=== PATIENT | female | born 2005 | race Two or more races ===

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

== ENCOUNTER 2023-02-26 16:57 | Emergency (ER) | payer OTHER ==
[~2023-02-26] VITALS: Ht 162.6 cm; Wt 103.1 kg
[~2023-02-26 16:57] MED LIST changes: +CEPH500T PO
[2023-02-26 17:00] VITALS: BP 135/76; TEMP 100.1; O2SAT 98
[2023-02-26 20:22] LABS: RSV AMPLIFICATION NEGATIVE (NEGATIVE)
[2023-02-26] MEDS ORDERED: AUGMENTIN 875 MG TAB PO ONE (21:10)
[2023-02-26] MEDS ORDERED: ACETAMINOPHEN TAB 650MG DOSE (2X325MG) PO ONE (21:10)
[2023-02-26] MEDS ORDERED: AMOX875T2 PO (21:57)
== END 2023-02-26 21:44 | disposition home or self-care (01) ==
LOC: M ED 16:57
DX: J03.00 Acute streptococcal tonsillitis, unspecified (principal); Z79.2 Long term (current) use of antibiotics; Z79.899 Other long term (current) drug therapy

== ENCOUNTER 2023-06-27 12:03 | Inpatient (IN) | payer OTHER ==
[~2023-06-27] VITALS: Ht 162.6 cm; Wt 100.7 kg
[~2023-06-27 12:03] MED LIST changes: +AMOX875T2 PO
[2023-06-27] MEDS ORDERED: METF500T13 PO (12:27)
[2023-06-27 13:45] LABS: BASO % 0.3 % (0.0-1.0); EOS % 0.1 % (0.0-3.0); HEMOGLOBIN 15.8 g/dl (12.0-15.5); LYMPH # 1.1 10^3/uL (1.5-5.0); MEAN CORPUSCULAR HEMOGLOBIN 29.9 pg (27.0-33.0); MEAN CORPUSCULAR HGB CONC 34.3 g/dl (32.0-36.5); MEAN CORPUSCULAR VOLUME 87.1 fl (80.0-96.0); MONO # 0.5 10^3/uL (0.0-0.8); MONO % 3.9 % (2.0-8.0); NEUTROPHILS # 9.7 10^3/uL (1.5-8.5); NEUTROPHILS % 85.3 % (36.0-66.0); PLATELET COUNT, AUTOMATED 400 10^3/uL (150-450); RED BLOOD COUNT 5.28 10^6/uL (4.00-5.40); WHITE BLOOD COUNT 11.4 10^3/uL (4.0-10.0)
[2023-06-27 13:49] LABS: VENOUS BASE EXCESS -9.4 (-2.0-2.0); VENOUS HCO3 16.6 MMOL/L (23.0-27.0); VENOUS O2 SATURATION 82.1 % (60.0-80.0); VENOUS PARTIAL PRESSURE CO2 37.1 mmHg (38.0-50.0); VENOUS PARTIAL PRESSURE O2 48.3 mmHg (30.0-50.0); VENOUS PH 7.269 UNITS (7.330-7.430); VENOUS STANDARD HCO3 16.8 MMOL/L; VENOUS TOTAL CO2 17.8 MMOL/L (24.0-28.0)
[2023-06-27 14:07] LABS: HEMOGLOBIN A1c 12.4 % (4.0-6.0)
[2023-06-27 14:10] LABS: LIPASE 36 U/L (12-53)
[2023-06-27 14:17] LABS: ACETONE/KETONE > 4.50 MMOL/L (0.02-0.27); ALBUMIN 3.9 G/DL (3.2-5.2); ALKALINE PHOSPHATASE 105 U/L (46-116); ALT/SGPT 17 U/L (7.0-40); AST/SGOT 15 U/L (<34); BILIRUBIN,DIRECT 0.1 MG/DL (<0.4); BILIRUBIN,TOTAL 0.4 MG/DL (0.3-1.2); BLOOD UREA NITROGEN 12 MG/DL (9-23); CALCIUM LEVEL 8.8 MG/DL (8.5-10.1); CARBON DIOXIDE LEVEL 17 MMOL/L (20-31); CHLORIDE LEVEL 96 MMOL/L (98-107); CREATININE FOR GFR 0.78 MG/DL (0.55-1.30); GLUCOSE, FASTING 410 MG/DL (60-100); POTASSIUM SERUM 4.9 MMOL/L (3.5-5.1); SODIUM LEVEL 132 MMOL/L (136-145)
[2023-06-27] MEDS: NS 1,000 ML IV ONE (14:17)
[2023-06-27] MEDS: ONDANSETRON 4MG 2ML VIAL IV ONE (14:17)
[2023-06-27 14:21] LABS: HCG, SERUM QUALITATIVE NEGATIVE (NEGATIVE)
[2023-06-27] MEDS ORDERED: INSULIN IV RATE CHANGE DOCUMENTATION ML/HR XX SCH (14:25)
[2023-06-27] MEDS ORDERED: ISOVUE-370 76% 100ML VIAL As Ordered ONE (14:34)
[2023-06-27] MEDS: INSULIN REGULAR IN 0.9 % NACL 100 UNIT in IV 1 EA IV SCH (14:50)
[2023-06-27] MEDS: HumuLIN R (REGULAR) INSULIN (NovoLIN R) **100U/ML** PER UNIT IV ONE (14:51)
[2023-06-27] MEDS ORDERED: HOME MED LIST COMPLETE! XX SCH (15:05)
[2023-06-27 15:40] LABS: RSV AMPLIFICATION NEGATIVE (NEGATIVE)
[2023-06-27] MEDS: D5W/0.45% SODIUM CHLORIDE 1,000 ML IV SCH (16:02)
[2023-06-27] MEDS: D10W/0.45% SODIUM CHLORIDE 1,000 ML IV SCH (17:00)
[2023-06-27 17:21] LABS: VENOUS BASE EXCESS -6.2 (-2.0-2.0); VENOUS PARTIAL PRESSURE CO2 36.9 mmHg (38.0-50.0); VENOUS PARTIAL PRESSURE O2 40.3 mmHg (30.0-50.0); VENOUS TOTAL CO2 20.2 MMOL/L (24.0-28.0)
[2023-06-27] MEDS: KCL 20MEQ IN D5/0.45NS 1000ML 1,000 ML IV SCH (17:37)
[2023-06-27 18:00] LABS: BLOOD UREA NITROGEN 11 MG/DL (9-23); CALCIUM LEVEL 7.9 MG/DL (8.5-10.1); CARBON DIOXIDE LEVEL 20 MMOL/L (20-31); CHLORIDE LEVEL 105 MMOL/L (98-107); CREATININE FOR GFR 0.66 MG/DL (0.55-1.30); GLUCOSE, FASTING 128 MG/DL (60-100); POTASSIUM SERUM 3.7 MMOL/L (3.5-5.1); SODIUM LEVEL 136 MMOL/L (136-145)
[2023-06-27] MEDS ORDERED: GLUCOSE 4GM CHEW TABLET PO PRN (18:50)
[2023-06-27] MEDS ORDERED: GLUCAGON INJ 1MG VIAL SC PRN (18:50)
[2023-06-27] MEDS ORDERED: DEXTROSE 50% 50ML SYRINGE IV PRN (18:50)
[2023-06-27] MEDS: LEVEMIR (INSULIN DETEMIR) 1 UNITS/0.01ML SC SCH (18:59)
[2023-06-27 19:05] LABS: VENOUS BASE EXCESS -4.4 (-2.0-2.0); VENOUS HCO3 20.7 MMOL/L (23.0-27.0); VENOUS O2 SATURATION 96.1 % (60.0-80.0); VENOUS PH 7.353 UNITS (7.330-7.430); VENOUS STANDARD HCO3 20.8 MMOL/L; VENOUS TOTAL CO2 21.8 MMOL/L (24.0-28.0)
[2023-06-27 19:42] LABS: BLOOD UREA NITROGEN 9 MG/DL (9-23); CALCIUM LEVEL 7.8 MG/DL (8.5-10.1); CARBON DIOXIDE LEVEL 23 MMOL/L (20-31); CHLORIDE LEVEL 106 MMOL/L (98-107); CREATININE FOR GFR 0.65 MG/DL (0.55-1.30); GLUCOSE, FASTING 127 MG/DL (60-100); POTASSIUM SERUM 3.8 MMOL/L (3.5-5.1); SODIUM LEVEL 136 MMOL/L (136-145)
[2023-06-27] MEDS: INSULIN LISPRO (NovoLOG) PER UNIT SC ONE (20:05)
[2023-06-27] MEDS: INSULIN LISPRO (NovoLOG) PER UNIT SC SCH (21:00)
[2023-06-27 21:44] LABS: BLOOD UREA NITROGEN 9 MG/DL (9-23); CALCIUM LEVEL 8.3 MG/DL (8.5-10.1); CARBON DIOXIDE LEVEL 22 MMOL/L (20-31); CHLORIDE LEVEL 107 MMOL/L (98-107); CREATININE FOR GFR 0.65 MG/DL (0.55-1.30); GLUCOSE, FASTING 239 MG/DL (60-100); POTASSIUM SERUM 4.1 MMOL/L (3.5-5.1); SODIUM LEVEL 136 MMOL/L (136-145)
[2023-06-28 02:30] VITALS: BP 141/85; TEMP 98.1; O2SAT 98
[2023-06-28 06:15] VITALS: BP 130/76; TEMP 98.1; O2SAT 100
[2023-06-28 06:43] LABS: BLOOD UREA NITROGEN 7 MG/DL (9-23); CALCIUM LEVEL 8.4 MG/DL (8.5-10.1); CARBON DIOXIDE LEVEL 23 MMOL/L (20-31); CHLORIDE LEVEL 103 MMOL/L (98-107); CREATININE FOR GFR 0.68 MG/DL (0.55-1.30); GLUCOSE, FASTING 283 MG/DL (60-100); SODIUM LEVEL 133 MMOL/L (136-145)
[2023-06-28] MEDS ORDERED: INSULIN LISPRO (NovoLOG) PER UNIT SC SCH (07:30)
[2023-06-28] MEDS: ENOXAPARIN 40MG/0.4ML SYRINGE (J1650 PER 10MG) SC SCH (08:51)
[2023-06-28] MEDS: INSULIN LISPRO (NovoLOG) PER UNIT SC SCH (08:52)
[2023-06-28] MEDS ORDERED: GLUC1TES2 XX (10:39)
[2023-06-28] MEDS ORDERED: DEXT4TAB83 PO (10:39)
[2023-06-28] MEDS ORDERED: BLOOKIT21 XX (10:39)
[2023-06-28] MEDS ORDERED: LANTINJ4 SC (10:39)
[2023-06-28] MEDS ORDERED: PEN-308 SC (10:39)
[2023-06-28] MEDS ORDERED: ALCOPAD25 TOP (10:39)
[2023-06-28] MEDS ORDERED: LANC30MI XX (10:39)
[2023-06-28 14:15] VITALS: BP 128/74; TEMP 98.1; O2SAT 100
[2023-06-28] MEDS ORDERED: LEVEMIR (INSULIN DETEMIR) 1 UNITS/0.01ML SC SCH (21:00)
== END 2023-06-28 19:00 | disposition home or self-care (01) | DRG 420 ==
LOC: M ED 12:03 → M ED INP 16:50 → ENRESERV 06-28 01:57 → M MS5PR 06-28 02:30
PROVIDERS: ADMIT Internal Medicine Pulmonary Disease; ATTEND Student in an Organized Health Care Education/Training Program
DX: E10.10 Type 1 diabetes mellitus with ketoacidosis without coma (principal); F17.290 Nicotine dependence, other tobacco product, uncomplicated; Z83.49 Family history of other endocrine, nutritional and metabolic diseases; F12.90 Cannabis use, unspecified, uncomplicated

== ENCOUNTER 2024-07-18 15:56 | Emergency (ER) | payer OTHER ==
[~2024-07-18] VITALS: Ht 162.6 cm; Wt 87.7 kg
[~2024-07-18 15:56] MED LIST changes: +ALCOPAD25 TOP; +BLOOKIT21 XX; +DEXT4TAB83 PO; +GLUC1TES2 XX; +LANC30MI XX; +LANTINJ4 SC; +METF500T13 PO; +PEN-308 SC
[2024-07-18 16:03] VITALS: TEMP 98.7
[2024-07-18] MEDS ORDERED: INSU100I59 (16:07)
[2024-07-18] MEDS ORDERED: NOVOINJ3 SQ (16:07)
[2024-07-18 19:11] LABS: VENOUS BASE EXCESS -0.3 (-2.0-2.0); VENOUS HCO3 22.7 MMOL/L (23.0-27.0); VENOUS O2 SATURATION 99.1 % (60.0-80.0); VENOUS PARTIAL PRESSURE CO2 33.5 mmHg (38.0-50.0); VENOUS PARTIAL PRESSURE O2 173.8 mmHg (30.0-50.0); VENOUS PH 7.449 UNITS (7.330-7.430); VENOUS STANDARD HCO3 24.3 MMOL/L; VENOUS TOTAL CO2 23.7 MMOL/L (24.0-28.0)
[2024-07-18 19:16] LABS: BASO # 0.1 10^3/uL (0.0-0.2); BASO % 0.6 % (0.0-1.0); EOS % 0.2 % (0.0-3.0); HEMATOCRIT 50.8 % (36.0-47.0); HEMOGLOBIN 17.3 g/dl (12.0-15.5); LYMPH # 3.1 10^3/uL (1.5-5.0); LYMPH % 25.5 % (24.0-44.0); MEAN CORPUSCULAR HEMOGLOBIN 30.5 pg (27.0-33.0); MEAN CORPUSCULAR HGB CONC 34.1 g/dl (32.0-36.5); MEAN CORPUSCULAR VOLUME 89.4 fl (80.0-96.0); MONO # 0.7 10^3/uL (0.0-0.8); MONO % 5.6 % (2.0-8.0); NEUTROPHILS # 8.2 10^3/uL (1.5-8.5); NEUTROPHILS % 67.7 % (36.0-66.0); PLATELET COUNT, AUTOMATED 442 10^3/uL (150-450); RED BLOOD COUNT 5.68 10^6/uL (4.00-5.40); WHITE BLOOD COUNT 12.1 10^3/uL (4.0-10.0)
[2024-07-18 19:16] LABS: KETONE, URINE AUTO RFX 2+ mg/dL (NEGATIVE); LEUKOCYTE ESTERASE UR AUTO RFX NEGATIVE (NEGATIVE); MUCUS, URINE RFX SMALL (NEGATIVE); NITRITE, URINE AUTO RFX NEGATIVE (NEGATIVE); RBC, URINE AUTO RFX 0 /HPF (0-3); SQUAM EPITHELIAL CELL UR AURFX 5 /HPF (0-6); WBC, URINE AUTO RFX 1 /HPF (0-3)
[2024-07-18] MEDS: ONDANSETRON 4MG 2ML VIAL IV ONE (19:24)
[2024-07-18 19:29] LABS: HEMOGLOBIN A1c 12.4 % (4.0-6.0)
[2024-07-18 19:36] LABS: OSMOLALITY SERUM 321 MOSM/KG (275-295)
[2024-07-18 19:40] LABS: HCG, SERUM QUALITATIVE NEGATIVE (NEGATIVE)
[2024-07-18 19:42] LABS: ACETONE/KETONE 1.79 MMOL/L (0.02-0.27)
[2024-07-18 19:46] LABS: ALBUMIN 4.4 G/DL (3.2-5.2); ALKALINE PHOSPHATASE 132 U/L (35-104); ALT/SGPT 19 U/L (7.0-40); AST/SGOT 36 U/L (<34); BILIRUBIN,DIRECT 0.2 MG/DL (<0.4); BILIRUBIN,TOTAL 0.7 MG/DL (0.3-1.2); BLOOD UREA NITROGEN 24 MG/DL (9-23); CALCIUM LEVEL 10.8 MG/DL (8.5-10.1); CARBON DIOXIDE LEVEL 25 MMOL/L (20-31); CHLORIDE LEVEL 100 MMOL/L (98-107); CREATININE FOR GFR 0.86 MG/DL (0.55-1.30); GLUCOSE, FASTING 172 MG/DL (60-100); LIPASE 30 U/L (12-53); POTASSIUM SERUM 5.2 MMOL/L (3.5-5.1); SODIUM LEVEL 138 MMOL/L (136-145); TOTAL PROTEIN 9.6 G/DL (5.7-8.2)
[2024-07-18] MEDS: NS (Normal Saline) 0.9% 1,000 ML IV ONE (20:10)
[2024-07-18 20:37] VITALS: BP 131/80; O2SAT 99
[2024-07-18] MEDS ORDERED: ONDA-282 PO (21:10)
== END 2024-07-18 21:20 | disposition home or self-care (01) ==
LOC: M ED 15:56
DX: R11.2 Nausea with vomiting, unspecified (principal); E10.9 Type 1 diabetes mellitus without complications; F17.290 Nicotine dependence, other tobacco product, uncomplicated; Z79.4 Long term (current) use of insulin

== ENCOUNTER 2024-07-19 09:24 | Inpatient (IN) | payer OTHER ==
[~2024-07-19] VITALS: Ht 162.6 cm; Wt 89.7 kg
[~2024-07-19 09:24] MED LIST changes: +INSU100I59; +NOVOINJ3 SQ; +ONDA-282 PO
[2024-07-19 10:11] LABS: VENOUS BASE EXCESS -18.2 (-2.0-2.0); VENOUS HCO3 6.3 MMOL/L (23.0-27.0); VENOUS O2 SATURATION 99.6 % (60.0-80.0); VENOUS PARTIAL PRESSURE CO2 15.2 mmHg (38.0-50.0); VENOUS PARTIAL PRESSURE O2 236.9 mmHg (30.0-50.0); VENOUS PH 7.238 UNITS (7.330-7.430); VENOUS STANDARD HCO3 11.5 MMOL/L; VENOUS TOTAL CO2 6.8 MMOL/L (24.0-28.0)
[2024-07-19] MEDS: ONDANSETRON 4MG 2ML VIAL IV ONE (10:15)
[2024-07-19 10:20] LABS: BASO # 0.1 10^3/uL (0.0-0.2); BASO % 0.5 % (0.0-1.0); HEMATOCRIT 46.6 % (36.0-47.0); LYMPH # 0.9 10^3/uL (1.5-5.0); LYMPH % 6.8 % (24.0-44.0); MEAN CORPUSCULAR HEMOGLOBIN 30.1 pg (27.0-33.0); MEAN CORPUSCULAR HGB CONC 31.5 g/dl (32.0-36.5); MEAN CORPUSCULAR VOLUME 95.5 fl (80.0-96.0); MONO # 0.6 10^3/uL (0.0-0.8); MONO % 4.7 % (2.0-8.0); NEUTROPHILS # 11.6 10^3/uL (1.5-8.5); NEUTROPHILS % 87.5 % (36.0-66.0); PLATELET COUNT, AUTOMATED 368 10^3/uL (150-450); RED BLOOD COUNT 4.88 10^6/uL (4.00-5.40); WHITE BLOOD COUNT 13.2 10^3/uL (4.0-10.0)
[2024-07-19 10:21] LABS: HEMOGLOBIN 14.7 g/dl (12.0-15.5)
[2024-07-19 10:39] LABS: LIPASE 31 U/L (12-53)
[2024-07-19 10:44] LABS: ACETONE/KETONE > 4.50 MMOL/L (0.02-0.27); ALBUMIN 3.7 G/DL (3.2-5.2); ALKALINE PHOSPHATASE 115 U/L (35-104); ALT/SGPT 16 U/L (7.0-40); AST/SGOT 34 U/L (<34); BILIRUBIN,DIRECT 0.4 MG/DL (<0.4); BILIRUBIN,TOTAL 0.9 MG/DL (0.3-1.2); BLOOD UREA NITROGEN 25 MG/DL (9-23); CALCIUM LEVEL 9.3 MG/DL (8.5-10.1); CARBON DIOXIDE LEVEL < 10.0 MMOL/L (20-31); CHLORIDE LEVEL 93 MMOL/L (98-107); GLUCOSE, FASTING 661 MG/DL (60-100); MAGNESIUM LEVEL 2.2 MG/DL (1.8-2.4); POTASSIUM SERUM 5.7 MMOL/L (3.5-5.1); SODIUM LEVEL 131 MMOL/L (136-145); TOTAL PROTEIN 7.9 G/DL (5.7-8.2)
[2024-07-19] MEDS: NS (Normal Saline) 0.9% 1,000 ML IV ONE ×2 (10:46→11:00)
[2024-07-19] MEDS ORDERED: INSULIN IV RATE CHANGE DOCUMENTATION ML/HR XX SCH ×2 (10:50→13:05)
[2024-07-19 10:51] LABS: OSMOLALITY SERUM 339 MOSM/KG (275-295)
[2024-07-19 10:57] LABS: KETONE, URINE AUTO RFX 2+ mg/dL (NEGATIVE); LEUKOCYTE ESTERASE UR AUTO RFX NEGATIVE (NEGATIVE); NITRITE, URINE AUTO RFX NEGATIVE (NEGATIVE); RBC, URINE AUTO RFX 0 /HPF (0-3); SQUAM EPITHELIAL CELL UR AURFX 1 /HPF (0-6); WBC, URINE AUTO RFX 0 /HPF (0-3)
[2024-07-19] MEDS: INSULIN REGULAR IN 0.9 % NACL 100 UNIT in IV 1 EA IV SCH (11:19)
[2024-07-19 11:39] LABS: HEMOGLOBIN A1c 12.6 % (4.0-6.0)
[2024-07-19] MEDS ORDERED: INSULIN REGULAR IN 0.9 % NACL 100 UNIT in IV 1 EA IV SCH (12:10)
[2024-07-19 12:12] VITALS: BP 159/104; TEMP 98.3; O2SAT 99
[2024-07-19] MEDS: PANTOPRAZOLE 40MG VIAL IV SCH (13:22)
[2024-07-19] MEDS: NS (Normal Saline) 0.9% 1,000 ML IV SCH (13:23)
[2024-07-19] MEDS: PROMETHAZINE 25MG/ML 1ML VIAL IV PRN (13:24)
[2024-07-19 13:26] VITALS: BP 168/121; O2SAT 99
[2024-07-19 13:30] VITALS: BP 162/105; O2SAT 99
[2024-07-19] MEDS ORDERED: HOME MED LIST COMPLETE! XX SCH (13:40)
[2024-07-19] MEDS: D5W/0.9% SODIUM CHLORIDE 1,000 ML IV SCH (15:40)
[2024-07-19 16:00] VITALS: BP 154/108; TEMP 98; O2SAT 98
[2024-07-19 16:28] LABS: VENOUS BASE EXCESS -12.3 (-2.0-2.0); VENOUS HCO3 11.1 MMOL/L (23.0-27.0); VENOUS O2 SATURATION 99.2 % (60.0-80.0); VENOUS PARTIAL PRESSURE CO2 21.5 mmHg (38.0-50.0); VENOUS PARTIAL PRESSURE O2 144.8 mmHg (30.0-50.0); VENOUS PH 7.329 UNITS (7.330-7.430); VENOUS STANDARD HCO3 15.2 MMOL/L; VENOUS TOTAL CO2 11.7 MMOL/L (24.0-28.0)
[2024-07-19 17:13] LABS: BLOOD UREA NITROGEN 25 MG/DL (9-23); CALCIUM LEVEL 9.2 MG/DL (8.5-10.1); CARBON DIOXIDE LEVEL 13 MMOL/L (20-31); CHLORIDE LEVEL 105 MMOL/L (98-107); CREATININE FOR GFR 0.93 MG/DL (0.55-1.30); GLUCOSE, FASTING 170 MG/DL (60-100); PHOSPHORUS LEVEL 2.9 MG/DL (2.5-4.9); POTASSIUM SERUM 4.9 MMOL/L (3.5-5.1); SODIUM LEVEL 141 MMOL/L (136-145)
[2024-07-19 20:00] VITALS: BP 144/89; TEMP 98.2; O2SAT 99
[2024-07-19 20:04] LABS: VENOUS HCO3 16.7 MMOL/L (23.0-27.0); VENOUS O2 SATURATION 99.1 % (60.0-80.0); VENOUS PARTIAL PRESSURE CO2 29.4 mmHg (38.0-50.0); VENOUS PARTIAL PRESSURE O2 229.7 mmHg (30.0-50.0); VENOUS PH 7.371 UNITS (7.330-7.430); VENOUS STANDARD HCO3 18.9 MMOL/L; VENOUS TOTAL CO2 17.6 MMOL/L (24.0-28.0)
[2024-07-19] MEDS: INSULIN IV RATE CHANGE DOCUMENTATION ML/HR XX SCH (20:05)
[2024-07-19 21:02] LABS: BLOOD UREA NITROGEN 22 MG/DL (9-23); CARBON DIOXIDE LEVEL 17 MMOL/L (20-31); CHLORIDE LEVEL 108 MMOL/L (98-107); CREATININE FOR GFR 0.93 MG/DL (0.55-1.30); GLUCOSE, FASTING 186 MG/DL (60-100); PHOSPHORUS LEVEL 3.5 MG/DL (2.5-4.9); POTASSIUM SERUM 5.1 MMOL/L (3.5-5.1); SODIUM LEVEL 142 MMOL/L (136-145)
[2024-07-20] VITALS: BP 150/107; TEMP 97.8; O2SAT 99
[2024-07-20 00:16] LABS: VENOUS BASE EXCESS -2.6 (-2.0-2.0); VENOUS O2 SATURATION 96.7 % (60.0-80.0); VENOUS PARTIAL PRESSURE CO2 37.7 mmHg (38.0-50.0); VENOUS PARTIAL PRESSURE O2 87.3 mmHg (30.0-50.0); VENOUS PH 7.384 UNITS (7.330-7.430); VENOUS STANDARD HCO3 22.3 MMOL/L; VENOUS TOTAL CO2 23.2 MMOL/L (24.0-28.0)
[2024-07-20 00:52] LABS: BLOOD UREA NITROGEN 21 MG/DL (9-23); CALCIUM LEVEL 8.8 MG/DL (8.5-10.1); CARBON DIOXIDE LEVEL 22 MMOL/L (20-31); CHLORIDE LEVEL 109 MMOL/L (98-107); CREATININE FOR GFR 0.96 MG/DL (0.55-1.30); GLUCOSE, FASTING 127 MG/DL (60-100); PHOSPHORUS LEVEL 2.6 MG/DL (2.5-4.9); POTASSIUM SERUM 3.9 MMOL/L (3.5-5.1); SODIUM LEVEL 144 MMOL/L (136-145)
[2024-07-20 04:00] VITALS: BP 142/95; TEMP 98.3; O2SAT 99
[2024-07-20 04:17] LABS: VENOUS BASE EXCESS -5.6 (-2.0-2.0); VENOUS HCO3 18.8 MMOL/L (23.0-27.0); VENOUS O2 SATURATION 90.4 % (60.0-80.0); VENOUS PARTIAL PRESSURE CO2 33.9 mmHg (38.0-50.0); VENOUS PARTIAL PRESSURE O2 58.4 mmHg (30.0-50.0); VENOUS PH 7.362 UNITS (7.330-7.430); VENOUS STANDARD HCO3 19.8 MMOL/L; VENOUS TOTAL CO2 19.8 MMOL/L (24.0-28.0)
[2024-07-20 04:23] LABS: BASO % 0.3 % (0.0-1.0); EOS # 0.1 10^3/uL (0.0-0.5); EOS % 0.6 % (0.0-3.0); HEMATOCRIT 42.4 % (36.0-47.0); HEMOGLOBIN 14.1 g/dl (12.0-15.5); LYMPH # 2.4 10^3/uL (1.5-5.0); LYMPH % 27.2 % (24.0-44.0); MEAN CORPUSCULAR HEMOGLOBIN 30.8 pg (27.0-33.0); MEAN CORPUSCULAR HGB CONC 33.3 g/dl (32.0-36.5); MEAN CORPUSCULAR VOLUME 92.6 fl (80.0-96.0); MONO # 0.8 10^3/uL (0.0-0.8); MONO % 8.7 % (2.0-8.0); NEUTROPHILS # 5.6 10^3/uL (1.5-8.5); PLATELET COUNT, AUTOMATED 326 10^3/uL (150-450); RED BLOOD COUNT 4.58 10^6/uL (4.00-5.40); WHITE BLOOD COUNT 8.9 10^3/uL (4.0-10.0)
[2024-07-20 04:46] LABS: BLOOD UREA NITROGEN 18 MG/DL (9-23); CALCIUM LEVEL 8.8 MG/DL (8.5-10.1); CARBON DIOXIDE LEVEL 22 MMOL/L (20-31); CHLORIDE LEVEL 110 MMOL/L (98-107); CREATININE FOR GFR 0.96 MG/DL (0.55-1.30); GLUCOSE, FASTING 177 MG/DL (60-100); POTASSIUM SERUM 4.4 MMOL/L (3.5-5.1); SODIUM LEVEL 144 MMOL/L (136-145)
[2024-07-20 08:00] VITALS: BP 121/84; TEMP 98.1; O2SAT 99
[2024-07-20 08:08] LABS: VENOUS BASE EXCESS -5.6 (-2.0-2.0); VENOUS HCO3 18.6 MMOL/L (23.0-27.0); VENOUS O2 SATURATION 99.4 % (60.0-80.0); VENOUS PARTIAL PRESSURE CO2 33.1 mmHg (38.0-50.0); VENOUS PARTIAL PRESSURE O2 192.9 mmHg (30.0-50.0); VENOUS PH 7.368 UNITS (7.330-7.430); VENOUS STANDARD HCO3 19.9 MMOL/L; VENOUS TOTAL CO2 19.6 MMOL/L (24.0-28.0)
[2024-07-20 08:43] LABS: BLOOD UREA NITROGEN 17 MG/DL (9-23); CALCIUM LEVEL 8.6 MG/DL (8.5-10.1); CARBON DIOXIDE LEVEL 22 MMOL/L (20-31); CHLORIDE LEVEL 108 MMOL/L (98-107); GLUCOSE, FASTING 166 MG/DL (60-100); PHOSPHORUS LEVEL 2.7 MG/DL (2.5-4.9); SODIUM LEVEL 142 MMOL/L (136-145)
[2024-07-20] MEDS ORDERED: GLUCOSE 4 GM CHEW PO PRN (09:10)
[2024-07-20] MEDS ORDERED: GLUCAGON INJ 1MG VIAL SC PRN (09:10)
[2024-07-20] MEDS ORDERED: DEXTROSE 50% 50ML SYRINGE IV PRN (09:10)
[2024-07-20] MEDS: ENOXAPARIN 40MG/0.4ML SYRINGE (J1650 PER 10MG) SC SCH (09:26)
[2024-07-20] MEDS: LanTUS (INSULIN GLARGINE INJ) 1 UNITS/0.01 ML SC SCH (09:27)
[2024-07-20] MEDS: INSULIN REGULAR IN 0.9 % NACL 100 UNIT in IV 1 EA IV SCH (09:32)
[2024-07-20] MEDS: INSULIN LISPRO (NovoLOG) PER UNIT SC SCH ×2 (11:36→20:11)
[2024-07-20 12:00] VITALS: BP 159/91
[2024-07-20 12:05] LABS: VENOUS BASE EXCESS -4.5 (-2.0-2.0); VENOUS HCO3 20.3 MMOL/L (23.0-27.0); VENOUS O2 SATURATION 98.8 % (60.0-80.0); VENOUS PARTIAL PRESSURE CO2 36.9 mmHg (38.0-50.0); VENOUS PH 7.359 UNITS (7.330-7.430); VENOUS STANDARD HCO3 20.8 MMOL/L; VENOUS TOTAL CO2 21.5 MMOL/L (24.0-28.0)
[2024-07-20 12:43] LABS: BLOOD UREA NITROGEN 15 MG/DL (9-23); CARBON DIOXIDE LEVEL 23 MMOL/L (20-31); CHLORIDE LEVEL 106 MMOL/L (98-107); CREATININE FOR GFR 0.88 MG/DL (0.55-1.30); GLUCOSE, FASTING 151 MG/DL (60-100); PHOSPHORUS LEVEL 2.5 MG/DL (2.5-4.9); POTASSIUM SERUM 3.8 MMOL/L (3.5-5.1); SODIUM LEVEL 141 MMOL/L (136-145)
[2024-07-20] MEDS: INSULIN LISPRO (NovoLOG) PER UNIT SC ONE (14:47)
[2024-07-20 20:00] VITALS: BP 145/89; TEMP 98; O2SAT 99
[2024-07-21 04:00] VITALS: BP 139/82; TEMP 98.6; O2SAT 99
[2024-07-21 04:53] LABS: BASO % 0.7 % (0.0-1.0); EOS # 0.1 10^3/uL (0.0-0.5); EOS % 1.8 % (0.0-3.0); HEMATOCRIT 36.1 % (36.0-47.0); HEMOGLOBIN 12.2 g/dl (12.0-15.5); LYMPH # 3.3 10^3/uL (1.5-5.0); LYMPH % 55.5 % (24.0-44.0); MEAN CORPUSCULAR HEMOGLOBIN 30.7 pg (27.0-33.0); MEAN CORPUSCULAR HGB CONC 33.8 g/dl (32.0-36.5); MEAN CORPUSCULAR VOLUME 90.7 fl (80.0-96.0); MONO # 0.4 10^3/uL (0.0-0.8); MONO % 6.4 % (2.0-8.0); NEUTROPHILS # 2.1 10^3/uL (1.5-8.5); NEUTROPHILS % 35.4 % (36.0-66.0); PLATELET COUNT, AUTOMATED 227 10^3/uL (150-450); RED BLOOD COUNT 3.98 10^6/uL (4.00-5.40)
[2024-07-21 05:21] LABS: BLOOD UREA NITROGEN 11 MG/DL (9-23); CALCIUM LEVEL 8.4 MG/DL (8.5-10.1); CARBON DIOXIDE LEVEL 25 MMOL/L (20-31); CHLORIDE LEVEL 103 MMOL/L (98-107); CREATININE FOR GFR 0.79 MG/DL (0.55-1.30); GLUCOSE, FASTING 317 MG/DL (60-100); POTASSIUM SERUM 3.4 MMOL/L (3.5-5.1); SODIUM LEVEL 138 MMOL/L (136-145)
[2024-07-21 08:00] VITALS: BP 142/82; TEMP 97.7; O2SAT 98
== END 2024-07-21 15:05 | disposition home or self-care (01) | DRG 420 ==
LOC: M ED 09:24 → M ED INP 11:07 → M ICU 12:03
PROVIDERS: ADMIT Internal Medicine Pulmonary Disease; ATTEND Student in an Organized Health Care Education/Training Program
DX: E10.10 Type 1 diabetes mellitus with ketoacidosis without coma (principal); E87.5 Hyperkalemia; E66.01 Morbid (severe) obesity due to excess calories; F12.90 Cannabis use, unspecified, uncomplicated; Z91.148 Patient's other noncompliance with medication regimen for other reason; Z79.4 Long term (current) use of insulin

== ENCOUNTER 2024-09-01 09:57 | Inpatient (IN) | payer OTHER ==
[~2024-09-01] VITALS: Ht 162.6 cm; Wt 90.0 kg
[2024-09-01] MEDS: PIPERACILLIN/TAZOBACTAM SOD 3.375 GM in DEXTROSE 5% (D5W) ADV/MINI-BAG 50 ML IV SCH (00:20)
[2024-09-01] MEDS: NS (Normal Saline) 0.9% 1,000 ML IV ONE (11:06)
[2024-09-01 11:12] LABS: VENOUS BASE EXCESS -5.6 (-2.0-2.0); VENOUS HCO3 19.8 MMOL/L (23.0-27.0); VENOUS O2 SATURATION 93.8 % (60.0-80.0); VENOUS PARTIAL PRESSURE CO2 38.4 mmHg (38.0-50.0); VENOUS PARTIAL PRESSURE O2 73.8 mmHg (30.0-50.0); VENOUS STANDARD HCO3 19.8 MMOL/L
[2024-09-01 11:15] LABS: BASO % 0.3 % (0.0-1.0); EOS # 0.1 10^3/uL (0.0-0.5); EOS % 1.5 % (0.0-3.0); HEMATOCRIT 40.2 % (36.0-47.0); LYMPH # 1.5 10^3/uL (1.5-5.0); LYMPH % 16.3 % (24.0-44.0); MEAN CORPUSCULAR HEMOGLOBIN 31.3 pg (27.0-33.0); MEAN CORPUSCULAR HGB CONC 32.3 g/dl (32.0-36.5); MEAN CORPUSCULAR VOLUME 96.6 fl (80.0-96.0); MONO # 0.4 10^3/uL (0.0-0.8); MONO % 4.5 % (2.0-8.0); NEUTROPHILS # 7.2 10^3/uL (1.5-8.5); NEUTROPHILS % 77.1 % (36.0-66.0); PLATELET COUNT, AUTOMATED 255 10^3/uL (150-450); RED BLOOD COUNT 4.16 10^6/uL (4.00-5.40); WHITE BLOOD COUNT 9.3 10^3/uL (4.0-10.0)
[2024-09-01 11:43] LABS: LIPASE 56 U/L (12-53)
[2024-09-01 11:49] LABS: HEMOGLOBIN A1c 12.4 % (4.0-6.0)
[2024-09-01 11:53] LABS: OSMOLALITY SERUM 317 MOSM/KG (275-295)
[2024-09-01] MEDS ORDERED: HOME MED LIST COMPLETE! XX SCH (11:55)
[2024-09-01 11:58] LABS: KETONE, URINE AUTO RFX 2+ mg/dL (NEGATIVE); MUCUS, URINE RFX SMALL (NEGATIVE); NITRITE, URINE AUTO RFX NEGATIVE (NEGATIVE); RBC, URINE AUTO RFX 1 /HPF (0-3); SQUAM EPITHELIAL CELL UR AURFX 2 /HPF (0-6); WBC, URINE AUTO RFX 3 /HPF (0-3)
[2024-09-01 11:59] LABS: LEUKOCYTE ESTERASE UR AUTO RFX TRACE (NEGATIVE)
[2024-09-01 12:08] LABS: ACETONE/KETONE > 4.50 MMOL/L (0.02-0.27); ALBUMIN 3.1 G/DL (3.2-5.2); ALKALINE PHOSPHATASE 118 U/L (35-104); ALT/SGPT 21 U/L (7.0-40); AST/SGOT 21 U/L (<34); BILIRUBIN,DIRECT 0.2 MG/DL (<0.4); BILIRUBIN,TOTAL 0.5 MG/DL (0.3-1.2); BLOOD UREA NITROGEN 14 MG/DL (9-23); CALCIUM LEVEL 8.3 MG/DL (8.5-10.1); CARBON DIOXIDE LEVEL 19 MMOL/L (20-31); CHLORIDE LEVEL 96 MMOL/L (98-107); CREATININE FOR GFR 0.65 MG/DL (0.55-1.30); GLOMERULAR FILTRATION RATE > 90.0 (>60); GLUCOSE, FASTING 661 MG/DL (60-100); MAGNESIUM LEVEL 1.9 MG/DL (1.8-2.4); PHOSPHORUS LEVEL 3.7 MG/DL (2.5-4.9); SODIUM LEVEL 132 MMOL/L (136-145); TOTAL PROTEIN 6.5 G/DL (5.7-8.2)
[2024-09-01] MEDS ORDERED: HumuLIN R (REGULAR) INSULIN (NovoLIN R) **100U/ML** PER UNIT IV ONE (12:10)
[2024-09-01] MEDS ORDERED: INSULIN IV RATE CHANGE DOCUMENTATION ML/HR XX SCH (12:10)
[2024-09-01] MEDS: ONDANSETRON 4MG 2ML VIAL IV ONE (12:45)
[2024-09-01] MEDS: HumuLIN R (REGULAR) INSULIN (NovoLIN R) **100U/ML** PER UNIT IV ONE (12:47)
[2024-09-01] MEDS: INSULIN REGULAR IN 0.9 % NACL 100 UNIT in IV 1 EA IV SCH ×2 (12:48→14:51)
[2024-09-01 13:08] LABS: HCG, SERUM QUALITATIVE NEGATIVE (NEGATIVE)
[2024-09-01] MEDS: MAG SULF 1GM/100ML (MAG RUN) 1 GM in IV 1 EA IV ONE (13:50)
[2024-09-01 14:10] VITALS: BP 134/86; TEMP 98.3; O2SAT 99
[2024-09-01] MEDS: LR 1,000 ML IV SCH (14:15)
[2024-09-01] MEDS ORDERED: INSULIN REGULAR 100UNITS IN 0.9% SODIUM CHLORIDE 100ML IVBAG As Ordered ONE (14:24)
[2024-09-01] MEDS: KCL 10MEQ/100ML SWI (KRUN) 10 MEQ in IV 1 EA IV ONE (14:58)
[2024-09-01] MEDS: INSULIN IV RATE CHANGE DOCUMENTATION ML/HR XX SCH (15:17)
[2024-09-01] MEDS ORDERED: ISOVUE-370 76% 100ML VIAL As Ordered ONE (15:57)
[2024-09-01 16:00] VITALS: BP 130/81; TEMP 97.2; O2SAT 99
[2024-09-01] MEDS: GASTROGRAFIN SOLUTION 30ML PO SCH (16:14)
[2024-09-01] MEDS: LR 1,000 ML IV ONE (16:14)
[2024-09-01] MEDS: ONDANSETRON 4MG 2ML VIAL IV PRN (16:16)
[2024-09-01] MEDS: D5W/LR 1,000 ML IV SCH (16:57)
[2024-09-01 18:11] VITALS: BP 129/69; O2SAT 100
[2024-09-01] MEDS: LanTUS (INSULIN GLARGINE INJ) 1 UNITS/0.01 ML SC ONE (18:42)
[2024-09-01 20:00] VITALS: BP 123/80; TEMP 97.8; O2SAT 99
[2024-09-01] MEDS ORDERED: DEXTROSE 50% 50ML SYRINGE As Ordered ONE (20:20)
[2024-09-01] MEDS ORDERED: GLUCOSE 4 GM CHEW PO PRN (20:20)
[2024-09-01] MEDS ORDERED: GLUCAGON INJ 1MG VIAL SC PRN (20:20)
[2024-09-01] MEDS: DEXTROSE 50% 50ML SYRINGE IV PRN (20:22)
[2024-09-01 21:06] LABS: BLOOD UREA NITROGEN 9 MG/DL (9-23); CALCIUM LEVEL 7.9 MG/DL (8.5-10.1); CARBON DIOXIDE LEVEL 24 MMOL/L (20-31); CHLORIDE LEVEL 105 MMOL/L (98-107); CREATININE FOR GFR 0.59 MG/DL (0.55-1.30); GLOMERULAR FILTRATION RATE > 90.0 (>60); GLUCOSE, FASTING 97 MG/DL (60-100); MAGNESIUM LEVEL 1.8 MG/DL (1.8-2.4); PHOSPHORUS LEVEL 1.9 MG/DL (2.5-4.9); POTASSIUM SERUM 3.7 MMOL/L (3.5-5.1); SODIUM LEVEL 139 MMOL/L (136-145)
[2024-09-01] MEDS: CALCIUM GLUCONATE 1,000 MG in DEXTROSE 5% (D5W) MINI-BAG PLU 100 ML IV ONE (21:53)
[2024-09-01] MEDS: INSULIN LISPRO (NovoLOG) PER UNIT SC ONE (22:17)
[2024-09-01] MEDS: SODIUM PHOSPHATE INJ 20 MMOL in D5W 250 ML IV ONE (23:35)
[2024-09-02 01:29] VITALS: BP 118/66; TEMP 97.4; O2SAT 96
[2024-09-02 01:58] LABS: BLOOD UREA NITROGEN 8 MG/DL (9-23); CALCIUM LEVEL 7.9 MG/DL (8.5-10.1); CARBON DIOXIDE LEVEL 26 MMOL/L (20-31); CHLORIDE LEVEL 101 MMOL/L (98-107); CREATININE FOR GFR 0.62 MG/DL (0.55-1.30); GLOMERULAR FILTRATION RATE > 90.0 (>60); GLUCOSE, FASTING 303 MG/DL (60-100); PHOSPHORUS LEVEL 4.4 MG/DL (2.5-4.9); SODIUM LEVEL 135 MMOL/L (136-145)
[2024-09-02] MEDS: NS (Normal Saline) 0.9% 1,000 ML IV SCH (03:03)
[2024-09-02 05:05] VITALS: BP 120/76; TEMP 98.1; O2SAT 99
[2024-09-02 05:24] LABS: BASO % 0.4 % (0.0-1.0); EOS # 0.3 10^3/uL (0.0-0.5); EOS % 3.5 % (0.0-3.0); HEMATOCRIT 34.5 % (36.0-47.0); HEMOGLOBIN 11.4 g/dl (12.0-15.5); LYMPH # 3.1 10^3/uL (1.5-5.0); LYMPH % 43.4 % (24.0-44.0); MEAN CORPUSCULAR HEMOGLOBIN 31.4 pg (27.0-33.0); MONO # 0.5 10^3/uL (0.0-0.8); MONO % 6.6 % (2.0-8.0); NEUTROPHILS # 3.3 10^3/uL (1.5-8.5); PLATELET COUNT, AUTOMATED 243 10^3/uL (150-450); RED BLOOD COUNT 3.63 10^6/uL (4.00-5.40); WHITE BLOOD COUNT 7.2 10^3/uL (4.0-10.0)
[2024-09-02 05:47] LABS: ALBUMIN 2.4 G/DL (3.2-5.2); ALKALINE PHOSPHATASE 95 U/L (35-104); ALT/SGPT 13 U/L (7.0-40); AST/SGOT 14 U/L (<34); BILIRUBIN,DIRECT < 0.1 MG/DL (<0.4); BILIRUBIN,TOTAL 0.2 MG/DL (0.3-1.2); BLOOD UREA NITROGEN 7 MG/DL (9-23); CALCIUM LEVEL 7.8 MG/DL (8.5-10.1); CARBON DIOXIDE LEVEL 27 MMOL/L (20-31); CHLORIDE LEVEL 105 MMOL/L (98-107); CREATININE FOR GFR 0.64 MG/DL (0.55-1.30); GLOMERULAR FILTRATION RATE > 90.0 (>60); GLUCOSE, FASTING 267 MG/DL (60-100); MAGNESIUM LEVEL 1.7 MG/DL (1.8-2.4); PHOSPHORUS LEVEL 4.3 MG/DL (2.5-4.9); POTASSIUM SERUM 4.2 MMOL/L (3.5-5.1); SODIUM LEVEL 139 MMOL/L (136-145); TOTAL PROTEIN 5.3 G/DL (5.7-8.2)
[2024-09-02] MEDS ORDERED: GLUCAGON INJ 1MG VIAL SC PRN (06:15)
[2024-09-02] MEDS ORDERED: DEXTROSE 50% 50ML SYRINGE IV PRN (06:15)
[2024-09-02] MEDS ORDERED: GLUCOSE 4 GM CHEW PO PRN (06:15)
[2024-09-02 08:00] VITALS: BP 123/79; TEMP 97.1; O2SAT 96
[2024-09-02] MEDS: LR 1,000 ML IV ONE (08:19)
[2024-09-02] MEDS: INSULIN LISPRO (NovoLOG) PER UNIT SC SCH (08:19)
[2024-09-02] MEDS: ENOXAPARIN 40MG/0.4ML SYRINGE (J1650 PER 10MG) SC SCH (08:20)
[2024-09-02 11:46] LABS: AMPHETAMINES LEVEL URINE NEGATIVE (NEGATIVE)
[2024-09-02 11:48] LABS: BARBITURATES URINE NEGATIVE (NEGATIVE); BENZODIAZEPINES URINE NEGATIVE (NEGATIVE); COCAINE METABOLITE URINE NEGATIVE (NEGATIVE); METHADONE URINE NEGATIVE (NEGATIVE); OPIATES URINE NEGATIVE (NEGATIVE); PHENCYCLIDINE URINE NEGATIVE (NEGATIVE)
[2024-09-02 11:49] LABS: CANNABINOIDS URINE POSITIVE (NEGATIVE)
[2024-09-02] MEDS ORDERED: THIA100TA PO (11:54)
[2024-09-02] MEDS ORDERED: INSU100I59 SUBQ (11:54)
[2024-09-02 12:00] VITALS: BP 139/86; TEMP 96.9; O2SAT 96
[2024-09-02] MEDS ORDERED: INSULIN LISPRO (NovoLOG) PER UNIT SC SCH (21:00)
== END 2024-09-02 13:40 | disposition home or self-care (01) | DRG 420 ==
LOC: M ED 09:57 → M ED INP 12:48 → M ICU 14:03
PROVIDERS: ADMIT Internal Medicine; ATTEND Internal Medicine
DX: E11.10 Type 2 diabetes mellitus with ketoacidosis without coma (principal); E66.01 Morbid (severe) obesity due to excess calories; E11.65 Type 2 diabetes mellitus with hyperglycemia; Z68.33 Body mass index [BMI] 33.0-33.9, adult; Z79.4 Long term (current) use of insulin; F12.90 Cannabis use, unspecified, uncomplicated; F17.290 Nicotine dependence, other tobacco product, uncomplicated

== ENCOUNTER 2025-04-02 11:46 | Inpatient (IN) | payer MEDICAID, OTHER ==
[~2025-04-02] VITALS: Ht 162.6 cm; Wt 96.2 kg
[~2025-04-02 11:46] MED LIST changes: +INSU100I59 SUBQ; +THIA100TA PO
[2025-04-02 12:22] LABS: VENOUS BASE EXCESS -17.2 (-2.0-2.0); VENOUS HCO3 10.8 MMOL/L (23.0-27.0); VENOUS O2 SATURATION 83.8 % (60.0-80.0); VENOUS PARTIAL PRESSURE CO2 32.9 mmHg (38.0-50.0); VENOUS PARTIAL PRESSURE O2 59.8 mmHg (30.0-50.0); VENOUS PH 7.134 UNITS (7.330-7.430); VENOUS STANDARD HCO3 11.8 MMOL/L; VENOUS TOTAL CO2 11.8 MMOL/L (24.0-28.0)
[2025-04-02 12:25] LABS: BASO # 0.1 10^3/uL (0.0-0.2); BASO % 0.3 % (0.0-1.0); EOS # 0.0 10^3/uL (0.0-0.5); EOS % 0.0 % (0.0-3.0); LYMPH # 1.0 10^3/uL (1.5-5.0); LYMPH % 4.4 % (24.0-44.0); MONO # 1.2 10^3/uL (0.0-0.8); MONO % 5.3 % (2.0-8.0); NEUTROPHILS # 19.9 10^3/uL (1.5-8.5); NEUTROPHILS % 89.6 % (36.0-66.0); PLATELET COUNT, AUTOMATED 434 10^3/uL (150-450)
[2025-04-02 12:46] LABS: OSMOLALITY SERUM 341 MOSM/KG (275-295)
[2025-04-02] MEDS ORDERED: INSULIN IV RATE CHANGE DOCUMENTATION ML/HR XX SCH (12:50)
[2025-04-02] MEDS: NS (Normal Saline) 0.9% 1,000 ML IV ONE (12:51)
[2025-04-02 12:52] LABS: ACETONE/KETONE > 4.50 MMOL/L (0.02-0.27); ALT/SGPT 23 U/L (7.0-40); AST/SGOT 39 U/L (<34)
[2025-04-02 12:53] LABS: HCG, SERUM QUALITATIVE NEGATIVE (NEGATIVE)
[2025-04-02] MEDS: ONDANSETRON 4MG/2ML VIAL IV ONE (13:02)
[2025-04-02 13:06] LABS: ESTIMATED AVERAGE GLUCOSE 260.0 MG/DL (60-110)
[2025-04-02 13:09] LABS: KETONE, URINE AUTO RFX 2+ mg/dL (NEGATIVE); LEUKOCYTE ESTERASE UR AUTO RFX NEGATIVE (NEGATIVE); NITRITE, URINE AUTO RFX NEGATIVE (NEGATIVE); RBC, URINE AUTO RFX 0 /HPF (0-3); SQUAM EPITHELIAL CELL UR AURFX 1 /HPF (0-6); WBC, URINE AUTO RFX 1 /HPF (0-3)
[2025-04-02] MEDS: INSULIN REGULAR IN 0.9 % NACL 100 UNIT in IV 1 EA IV SCH ×2 (13:32→18:27)
[2025-04-02] MEDS ORDERED: INSUH10VL SC (13:40)
[2025-04-02] MEDS ORDERED: HOME MED LIST COMPLETE! XX SCH (13:40)
[2025-04-02] MEDS ORDERED: ISOVUE-370 76% 100 ML VIAL As Ordered ONE (14:24)
[2025-04-02] MEDS: NS (Normal Saline) 0.9% 2,000 ML in IV 1 EA IV STA (14:32)
[2025-04-02] MEDS: PIPERACILLIN/TAZOBACTAM SOD 4.5 GM in DEXTROSE 5% (D5W) ADV/MINI-BAG 50 ML IV ONE (14:51)
[2025-04-02] MEDS: KCL 20MEQ IN D5/0.45NS 1000ML 1,000 ML IV SCH (16:56)
[2025-04-02 16:57] LABS: CALCIUM LEVEL 10.7 MG/DL (8.5-10.1); CARBON DIOXIDE LEVEL < 10.0 MMOL/L (20-31); CHLORIDE LEVEL 99 MMOL/L (98-107); CREATININE FOR GFR 0.99 MG/DL (0.55-1.30); GLOMERULAR FILTRATION RATE 83.2 (>60); POTASSIUM SERUM 5.8 MMOL/L (3.5-5.1); SODIUM LEVEL 135 MMOL/L (136-145)
[2025-04-02 17:43] LABS: CALCIUM LEVEL 8.5 MG/DL (8.5-10.1); CARBON DIOXIDE LEVEL 16.0 MMOL/L (20-31); CHLORIDE LEVEL 110.0 MMOL/L (98-107); CREATININE FOR GFR 1.01 MG/DL (0.55-1.30); GLOMERULAR FILTRATION RATE 81.2 (>60); POTASSIUM SERUM 4.8 MMOL/L (3.5-5.1); SODIUM LEVEL 142.0 MMOL/L (136-145)
[2025-04-02 20:08] VITALS: BP 164/77; TEMP 98.2; O2SAT 98
[2025-04-02] MEDS: INSULIN IV RATE CHANGE DOCUMENTATION ML/HR XX SCH (20:14)
[2025-04-02 21:00] VITALS: BP 124/58; O2SAT 96
[2025-04-02 21:43] LABS: CALCIUM LEVEL 8.3 MG/DL (8.5-10.1); CARBON DIOXIDE LEVEL 18.0 MMOL/L (20-31); CHLORIDE LEVEL 107.0 MMOL/L (98-107); CREATININE FOR GFR 0.95 MG/DL (0.55-1.30); GLOMERULAR FILTRATION RATE 87.4 (>60); MAGNESIUM LEVEL 1.7 MG/DL (1.8-2.4); PHOSPHORUS LEVEL 2.2 MG/DL (2.5-4.9); POTASSIUM SERUM 4.9 MMOL/L (3.5-5.1); SODIUM LEVEL 136.0 MMOL/L (136-145)
[2025-04-02 22:00] VITALS: BP 114/64; O2SAT 98
[2025-04-02] MEDS: MAG SULF 1GM/100ML (MAG RUN) 1 GM in IV 1 EA IV ONE (22:45)
[2025-04-02] MEDS: LanTUS (INSULIN GLARGINE INJ) 1 UNITS/0.01 ML SC ONE (22:51)
[2025-04-02 23:00] VITALS: BP 119/80; O2SAT 100
[2025-04-03] VITALS (10 sets, daily range): BP systolic 104–142; BP diastolic 53–74; TEMP 97.8–99.7; O2SAT 95–99
[2025-04-03] MEDS: POTASSIUM PHOSPHATE INJ 20 MMOL in D5W 250 ML IV ONE (00:36)
[2025-04-03] MEDS ORDERED: GLUCOSE 4 GM CHEW PO PRN (01:10)
[2025-04-03] MEDS ORDERED: GLUCAGON INJ 1 MG VIAL SC PRN (01:10)
[2025-04-03] MEDS ORDERED: DEXTROSE 50% 50 ML SYRINGE IV PRN (01:10)
[2025-04-03] MEDS: INSULIN LISPRO (NovoLOG) PER UNIT SC SCH ×3 (01:15→21:47)
[2025-04-03 01:30] LABS: CALCIUM LEVEL 8.0 MG/DL (8.5-10.1); CARBON DIOXIDE LEVEL 19 MMOL/L (20-31); CHLORIDE LEVEL 106 MMOL/L (98-107); CREATININE FOR GFR 0.90 MG/DL (0.55-1.30); GLOMERULAR FILTRATION RATE > 90.0 (>60); POTASSIUM SERUM 4.9 MMOL/L (3.5-5.1); SODIUM LEVEL 135 MMOL/L (136-145)
[2025-04-03] MEDS: NS (Normal Saline) 0.9% 1,000 ML IV SCH (02:08)
[2025-04-03 05:31] LABS: CALCIUM LEVEL 8.3 MG/DL (8.5-10.1); CARBON DIOXIDE LEVEL 19 MMOL/L (20-31); CHLORIDE LEVEL 105 MMOL/L (98-107); CREATININE FOR GFR 0.87 MG/DL (0.55-1.30); GLOMERULAR FILTRATION RATE > 90.0 (>60); MAGNESIUM LEVEL 2.0 MG/DL (1.8-2.4); PHOSPHORUS LEVEL 4.1 MG/DL (2.5-4.9); POTASSIUM SERUM 4.9 MMOL/L (3.5-5.1); SODIUM LEVEL 134 MMOL/L (136-145)
[2025-04-03 09:13] LABS: BASO # 0.0 10^3/uL (0.0-0.2); BASO % 0.2 % (0.0-1.0); EOS # 0.0 10^3/uL (0.0-0.5); EOS % 0.1 % (0.0-3.0); LYMPH # 2.9 10^3/uL (1.5-5.0); LYMPH % 15.5 % (24.0-44.0); MONO # 1.3 10^3/uL (0.0-0.8); MONO % 7.1 % (2.0-8.0); NEUTROPHILS # 14.4 10^3/uL (1.5-8.5); NEUTROPHILS % 76.8 % (36.0-66.0); PLATELET COUNT, AUTOMATED 363 10^3/uL (150-450)
[2025-04-03 09:28] LABS: CALCIUM LEVEL 8.1 MG/DL (8.5-10.1); CARBON DIOXIDE LEVEL 19 MMOL/L (20-31); CHLORIDE LEVEL 106 MMOL/L (98-107); CREATININE FOR GFR 0.85 MG/DL (0.55-1.30); GLOMERULAR FILTRATION RATE > 90.0 (>60); POTASSIUM SERUM 4.1 MMOL/L (3.5-5.1); SODIUM LEVEL 135 MMOL/L (136-145)
[2025-04-03] MEDS: ENOXAPARIN 40 MG/0.4 ML SYRINGE (J1650 PER 10MG) SC SCH (09:54)
[2025-04-03] MEDS: LanTUS (INSULIN GLARGINE INJ) 1 UNITS/0.01 ML SC ONE (09:55)
[2025-04-03] MEDS: LanTUS (INSULIN GLARGINE INJ) 1 UNITS/0.01 ML SC SCH (21:47)
[2025-04-04 03:58] VITALS: BP 131/77; TEMP 98.4; O2SAT 95
[2025-04-04 06:08] LABS: BASO # 0.0 10^3/uL (0.0-0.2); BASO % 0.3 % (0.0-1.0); EOS # 0.1 10^3/uL (0.0-0.5); EOS % 1.7 % (0.0-3.0); LYMPH # 2.8 10^3/uL (1.5-5.0); LYMPH % 36.0 % (24.0-44.0); MONO # 0.6 10^3/uL (0.0-0.8); MONO % 7.2 % (2.0-8.0); NEUTROPHILS # 4.2 10^3/uL (1.5-8.5); NEUTROPHILS % 54.7 % (36.0-66.0); PLATELET COUNT, AUTOMATED 288 10^3/uL (150-450)
[2025-04-04 06:36] LABS: ALT/SGPT 16 U/L (7.0-40); AST/SGOT 19 U/L (<34); CALCIUM LEVEL 8.5 MG/DL (8.5-10.1); CARBON DIOXIDE LEVEL 25 MMOL/L (20-31); CHLORIDE LEVEL 104 MMOL/L (98-107); CREATININE FOR GFR 0.71 MG/DL (0.55-1.30); GLOMERULAR FILTRATION RATE > 90.0 (>60); MAGNESIUM LEVEL 1.6 MG/DL (1.8-2.4); POTASSIUM SERUM 4.3 MMOL/L (3.5-5.1); SODIUM LEVEL 137 MMOL/L (136-145)
[2025-04-04 11:50] VITALS: BP 128/60; TEMP 98.4; O2SAT 97
[2025-04-04] MEDS: MAG SULF 1GM/100ML (MAG RUN) 1 GM in IV 1 EA IV SCH (12:31)
[2025-04-04] MEDS: INSULIN LISPRO (NovoLOG) PER UNIT SC ONE (12:48)
[2025-04-04] MEDS: NICOTINE POLACRILEX 2 MG GUM PO PRN (15:13)
[2025-04-04] MEDS: LanTUS (INSULIN GLARGINE INJ) 1 UNITS/0.01 ML SC ONE (18:01)
[2025-04-04 20:19] VITALS: BP 129/84; TEMP 98.4; O2SAT 99
[2025-04-05 05:43] VITALS: BP 103/62; TEMP 98.1; O2SAT 100
[2025-04-05 07:09] LABS: BASO # 0.0 10^3/uL (0.0-0.2); BASO % 0.3 % (0.0-1.0); EOS # 0.2 10^3/uL (0.0-0.5); EOS % 2.7 % (0.0-3.0); LYMPH # 3.3 10^3/uL (1.5-5.0); LYMPH % 46.3 % (24.0-44.0); MONO # 0.5 10^3/uL (0.0-0.8); MONO % 6.5 % (2.0-8.0); NEUTROPHILS # 3.1 10^3/uL (1.5-8.5); NEUTROPHILS % 44.1 % (36.0-66.0); PLATELET COUNT, AUTOMATED 285 10^3/uL (150-450)
[2025-04-05 07:32] LABS: ALT/SGPT 23 U/L (7.0-40); AST/SGOT 35 U/L (<34); CALCIUM LEVEL 8.5 MG/DL (8.5-10.1); CARBON DIOXIDE LEVEL 28 MMOL/L (20-31); CHLORIDE LEVEL 103 MMOL/L (98-107); CREATININE FOR GFR 0.74 MG/DL (0.55-1.30); GLOMERULAR FILTRATION RATE > 90.0 (>60); MAGNESIUM LEVEL 1.9 MG/DL (1.8-2.4); POTASSIUM SERUM 3.8 MMOL/L (3.5-5.1); SODIUM LEVEL 138 MMOL/L (136-145)
[2025-04-05] MEDS ORDERED: RISATAB3 PO (08:44)
[2025-04-05 11:54] VITALS: BP 118/60; TEMP 98.7; O2SAT 100
== END 2025-04-05 13:39 | disposition home or self-care (01) | DRG 420 ==
LOC: M ED 11:46 → M ED INP 18:16 → M ICU 20:00 → M MSPAV 04-03 13:25
PROVIDERS: ADMIT Internal Medicine Pulmonary Disease; ATTEND Internal Medicine
DX: E11.10 Type 2 diabetes mellitus with ketoacidosis without coma (principal); E83.42 Hypomagnesemia; E87.1 Hypo-osmolality and hyponatremia; E83.39 Other disorders of phosphorus metabolism; Z90.49 Acquired absence of other specified parts of digestive tract; F17.290 Nicotine dependence, other tobacco product, uncomplicated; Z79.4 Long term (current) use of insulin; T85.614A Breakdown (mechanical) of insulin pump, initial encounter